=== PATIENT | female | born 1975 | race Caucasian/White ===

== ENCOUNTER 2020-12-04 12:28 | Emergency (ER) | payer OTHER, SELFPAY ==
--- NOTE | ~2020-12-04 | CT_ITS ---
EXAMINATION: CT HEAD WITHOUT CONTRAST CLINICAL INFORMATION: Possible seizures, weakness. COMPARISON: None TECHNIQUE: Contiguous axial imaging was performed from the skull base to vertex without intravenous administration of contrast. This CT examination was performed using dose optimization techniques as appropriate, variously including the following: *Automated exposure control *Adjustment of mA and/or kV according to patient size (this includes techniques or standardized protocols for targeted exams where dose is matched to indication/reason for exam; i.e. extremities or head) *Use of iterative reconstruction technique DLP: 677 mGy-cm FINDINGS: There is no evidence of acute intracranial hemorrhage or territorial infarction. No abnormal mass effect or midline shift is seen. Aj to white matter differentiation is well preserved. No extra-axial fluid collections are identified. The ventricles are normal in size. There is no abnormal attenuation within the brain parenchyma. There are hyperostotic changes along frontoparietal inner cortical table. The osseous structures and soft tissues are normal. The mastoid air cells and visualized portions of the paranasal sinuses are well aerated. CT/CT head/brain wo con IMPRESSION: No acute intracranial process seen.
[2020-12-04 12:31] VITALS: BP 142/77; PULSE 102; RESP 18; TEMP 36.7; O2SAT 98; BMI 31.9
--- NOTE | 2020-12-04 12:40 | ED_ITS ---
HPI - General Adult General Chief complaint: Seizure Stated complaint: history of seizure Time Seen by Provider: 12/04/20 12:38 Source: patient Mode of arrival: ambulatory Limitations: no limitations History of Present Illness HPI narrative: chronic presentation when she has her seizures but has done well for years on keppra 1000mg BID - compliant. Unsure if because she took 2 benadryl to sleep then advil PM that is made her feel this way. complaint: hallucinations, shaking, anxiety Onset (ago): hour(s) (some time in middle of the night) Location: head Severity: moderate Relieving factors: none Exacerbating factors: other (took 80mg of benadryl last night trying to sleep felt like she was seeing people, R side shaking, compliant with keppra) Associated symptoms: confusion Treatments prior to arrival: none Related Data Allergies Allergy/AdvReac Type Severity Reaction Status Date / Time shellfish derived Allergy Severe THROAT Verified 12/04/20 12:31 [SHELLFISH DERIVED] SWELLING tramadol [From ULTRAM] Allergy Severe SEIZURES Verified 12/04/20 12:31 ibuprofen [From MOTRIN IB] Allergy Intermediate GI UPSET Verified 12/04/20 12:31 morphine [MORPHINE] Allergy Intermediate CONFUSION Verified 12/04/20 12:31 naproxen [NAPROXEN] Allergy Intermediate GI UPSET Verified 12/04/20 12:31 oxcarbazepine Allergy Intermediate RASH Verified 12/04/20 12:31 [From TRILEPTAL] zolpidem [From AMBIEN] Allergy Intermediate SEIZURES Verified 12/04/20 12:31 carbamazepine [Tegretol] Allergy Unknown oral rash Verified 12/04/20 12:31 Flexeril Allergy Unknown seizure Uncoded 03/07/15 00:00 Shellfish Allergy Unknown throat Uncoded 03/07/15 00:00 swelling Review of Systems Review of Systems: Constitutional : No Weight loss, No Fever, No Chills, No Fatigue, No Malaise ENT/Mouth : No sore throat, No Rhinorrhea Eyes: No Eye Pain, No Swelling, No Redness Cardiovascular : No Chest Pain, No SOB, No Dyspnea on Exertion, No Orthopnea, No Edema, No Palpitations Respiratory : No Cough, No Sputum, No Wheezing Gastrointestinal : No Nausea, No Vomiting, No Diarrhea, No Constipation, No abdominal Pain, No Hematochezia, No Melena Genitourinary : No Dysuria, No Urinary Frequency, No Hematuria, Musculoskeletal : No joint pain, No Myalgias, No Joint Swelling Skin : No Skin Lesions, No rash Neuro : No Weakness, No Numbness, No Dizziness, No Headache, pos hallucinations, pos tremors Psych : pos Anxiety/Panic, No Depression Heme/Lymph: No Bruising, No Bleeding,No Lymphadenopathy Endocrine : No Polyuria, No Polydipsia All other systems reviewed and are negative [facility] Past Medical History Medical History (Updated 12/04/20 @ 15:13 by Twyla Dwyer DO) Chronic back pain Seizure Social History Social History (Updated 12/04/20 @ 12:58 by Twyla Dwyer DO) Patient Tobacco Use Status: Former Tobacco user Advance Directives: No Advance Directives Information Provided: No Patient : No Physical Exam Vital Signs: Vital Signs: Last Vital Signs Temp 98.0 F 12/04/20 12:31 Pulse 94 12/04/20 12:56 Resp 16 12/04/20 12:56 BP 117/79 12/04/20 12:56 Pulse Ox 97 12/04/20 12:56 Body Mass Index 31.9 Appearance: Alert. Oriented X3. No acute distress. Anxious Eyes: Pupils equal, round and reactive to light. 3mm ENT: Pharynx normal. Neck: Normal inspection. Neck supple. CVS: Normal heart rate and rhythm. Pulses normal. Respiratory: No respiratory distress. Breath sounds normal. Abdomen: Soft and nontender. Skin: Skin warm and dry. Normal skin color. Normal skin turgor. Extremities: No lower extremity edema. No calf ttp Neuro: Oriented X 3. No motor deficit. No sensory deficit. no clonus, CN 2-12 intact, steady gait Course Course Course Narrative: daughter states these episodes are not new and this is a terminologist thing, we have offered crisis - they decline the daughter states this is not new her presentation of these episodes and she has had the same issues in the past but no found cause and today's is not the worst one. offered crisis but they have declined several times at this time no seizure activity Medical Decision Making MDM Narrative Medical decision making narrative: 45 yo female with chronic back pain on suboxone, partial seizures on 1000mg keppra BID - here with hallucinations, weird taste in mouth, confusion worried she is going to have a seizure - only new change is she took her usual 50mg benadryl to sleep but then also took advil PM - she is worried it is too much benadryl. She has normal pupils, normal VS, no clonus doubt serotonin syndrome, will obtain labs, CT head, PO ativan for anxiety. Lab Data Result diagrams: 12/04/20 13:14 12/04/20 13:14 Labs: Lab Results 12/04/20 12/04/20 12/04/20 Range/Units 13:14 13:14 13:14 WBC 4.5 L (4.8-10.8) X10*3/uL RBC 4.35 (4.20-5.50) X10*6/uL Hgb 12.6 (12.0-16.0) g/dl Hct 37.5 (37-47) % MCV 86.2 (80-98) fL MCH 29.0 (27.0-33.0) pg MCHC 33.6 (31.0-35.0) g/dl RDW 12.4 (11.0-16.0) % Plt Count 276 (160-400) X10*3/uL MPV 8.4 L (9.4-12.3) fL Immature Gran % (Auto) 0.2 (0.0-0.4) % Neut % (Auto) 75.3 H (45-73) % Lymph % (Auto) 21.5 (20-40) % Crenshaw % (Auto) 2.4 (2-11) % Eos % (Auto) 0.2 (0-4) % Baso % (Auto) 0.4 (0-2) % Lymph # (Auto) 1.0 L (1.2-4.9) X10*3/uL Crenshaw # (Auto) 0.1 (0.1-1.2) X10*3/uL Eos # (Auto) 0.0 (0.0-0.4) X10*3/uL Baso # (Auto) 0.0 (0.0-0.2) X10*3/uL Abs Immat Gran (auto) 0.01 (0.00-0.03) X10*3/uL Absolute Neuts (auto) 3.4 (2.0-8.3) X10*3/uL Absolute Nucleated RBC 0.000 (0.0-0.012) X10*3/uL Nucleated RBC % (auto) 0.0 (0.0-0.2) /100WBC Sodium 137 (135-145) mmol/L Potassium 4.1 (3.3-5.1) mmol/L Chloride 103 (96-108) mmol/L Carbon Dioxide 26 (22-29) mmol/L Anion Gap 12 (12-20) BUN 9 (9-16) mg/dL Creatinine 0.80 (0.5-1.4) mg/dL Estim Creat Clear Calc 98.1 Estimated GFR > 60 Random Glucose 104 (60-115) mg/dL Calcium 9.5 (8.4-10.2) mg/dL Magnesium 1.9 (1.6-2.6) mg/dL Urine Color Urine Appearance Urine pH (5.0-8.0) Ur Specific Baird (1.005-1.025) Urine Protein (NEG-TRACE) MG/DL Urine Glucose (UA) (NEG) MG/DL Urine Ketones (NEG) MG/DL Urine Blood (NEG) Urine Nitrite (NEG) Ur Leukocyte Esterase (NEG) Urine RBC (0) /HPF Urine WBC (0-4) /HPF Ur Squamous Epith Cells /LPF Urine Bacteria /LPF COVID-19 (JEISON) Negative (Negative) COVID-19 Clin Com See Note 12/04/20 Range/Units 13:25 WBC (4.8-10.8) X10*3/uL RBC (4.20-5.50) X10*6/uL Hgb (12.0-16.0) g/dl Hct (37-47) % MCV (80-98) fL MCH (27.0-33.0) pg MCHC (31.0-35.0) g/dl RDW (11.0-16.0) % Plt Count (160-400) X10*3/uL MPV (9.4-12.3) fL Immature Gran % (Auto) (0.0-0.4) % Neut % (Auto) (45-73) % Lymph % (Auto) (20-40) % Crenshaw % (Auto) (2-11) % Eos % (Auto) (0-4) % Baso % (Auto) (0-2) % Lymph # (Auto) (1.2-4.9) X10*3/uL C[place]shaw # (Auto) (0.1-1.2) X10*3/uL Eos # (Auto) (0.0-0.4) X10*3/uL Baso # (Auto) (0.0-0.2) X10*3/uL Abs Immat Gran (auto) (0.00-0.03) X10*3/uL Absolute Neuts (auto) (2.0-8.3) X10*3/uL Absolute Nucleated RBC (0.0-0.012) X10*3/uL Nucleated RBC % (auto) (0.0-0.2) /100WBC Sodium (135-145) mmol/L Potassium (3.3-5.1) mmol/L Chloride (96-108) mmol/L Carbon Dioxide (22-29) mmol/L Anion Gap (12-20) BUN (9-16) mg/dL Creatinine (0.5-1.4) mg/dL Estim Creat Clear Calc Estimated GFR Random Glucose (60-115) mg/dL Calcium (8.4-10.2) mg/dL Magnesium (1.6-2.6) mg/dL Urine Color YELLOW Urine Appearance CLEAR Urine pH 6.5 (5.0-8.0) Ur Specific Baird 1.010 (1.005-1.025) Urine Protein NEG (NEG-TRACE) MG/DL Urine Glucose (UA) NEG (NEG) MG/DL Urine Ketones NEG (NEG) MG/DL Urine Blood 2+ H (NEG) Urine Nitrite NEG (NEG) Ur Leukocyte Esterase NEG (NEG) Urine RBC 5-9 H (0) /HPF Urine WBC 0-2 (0-4) /HPF Ur Squamous Epith Cells 1+ /LPF Urine Bacteria NONE /LPF COVID-19 (JEISON) (Negative) COVID-19 Clin Com ECG Data Attestation: I personally reviewed and interpreted this ECG as follows: Interpretation: Rate: 94 Rhythm: NSR [place]: normal Normal P waves. Normal KI. Normal QRS complex. ST T wave : normal no RADHA qTC: normal prior studies: no acute ischemia The study has been interpreted contemporaneously by me. . Discharge Plan Discharge Clinical Impression: Adverse effect of diphenhydramine Patient Disposition: Home, Self-Care Instructions: Adverse Drug Reaction (ED) Additional Instructions: return to ED for any worsening symptoms or concerns please call your neurologist as soon as possible you should not be taking more than 25mg benadryl at a time Stand Alone Forms: Work/School Release
--- NOTE | 2020-12-04 12:52 | ECG_ITS ---
Test Reason : WEAKNESS Blood Pressure : / mmHG Vent. Rate : 094 BPM Atrial Rate : 094 BPM P-R Int : 164 ms QRS Dur : 100 ms QT Int : 366 ms P-R-T Axes : 050 017 059 degrees QTc Int : 457 ms Normal sinus rhythm Normal ECG When compared with ECG of 20-APR-2015 14:54, T wave inversion no longer evident in Inferior leads Nonspecific T wave abnormality, improved in Lateral leads Referred By: Twyla Dwyer Electronically Signed By:ELAINE MERRILL
[2020-12-04] MEDS: LORazepam 1 MG TABLET PO (12:53)
[2020-12-04 12:56] VITALS: BP 117/79; PULSE 94; RESP 16; O2SAT 97
--- NOTE | 2020-12-04 13:05 | PC.NURSE ---
pt alert and oriented x 3, vss. pt reports she feels like she is gonna have a seizure, last night she had a bad dream which woke her up and since then she has been having those feelings. pt reports her last big seizure was about two months ago. she is on keppra and has been taking her meds consistently.
[2020-12-04 13:30] LABS: MANUAL DIFF FLAG NO
[2020-12-04 13:32] LABS: Basophils Percent Auto 0.4 % (0-2); Eosinophils Percent Auto 0.2 % (0-4); Hematocrit 37.5 % (37-47); Hemoglobin 12.6 g/dl (12.0-16.0); Imm Gran Abs Auto 0.01 X10*3/uL (0.00-0.03); Imm Gran Pct Auto 0.2 % (0.0-0.4); Lymphocytes Percent Auto 21.5 % (20-40); Mean Corpuscular HGB Conc 33.6 g/dl (31.0-35.0); Mean Corpuscular Volume 86.2 fL (80-98); Mean Platelet Volume 8.4 fL (9.4-12.3); Monocytes Absolute Auto 0.1 X10*3/uL (0.1-1.2); Monocytes Percent Auto 2.4 % (2-11); Neutrophils Absolute Auto 3.4 X10*3/uL (2.0-8.3); Neutrophils Percent Auto 75.3 % (45-73); Platelet Count 276 X10*3/uL (160-400); Red Blood Count 4.35 X10*6/uL (4.20-5.50); Red Cell Distribution Width 12.4 % (11.0-16.0); White Blood Count 4.5 X10*3/uL (4.8-10.8)
[2020-12-04 13:40] LABS: Appearance Urine CLEAR; Color Urine YELLOW; Glucose Urine UA NEG (NEG); Leukocyte Esterase Urine NEG (NEG); Nitrite Urine NEG (NEG); PH 6.5 (5.0-8.0); UACC Culture Trigger NO; Urine Blood 2+ (NEG); Urine Ketones NEG (NEG); Urine Protein NEG (NEG-TRACE)
[2020-12-04 13:48] LABS: Anion Gap 12 (12-20); Blood Urea Nitrogen 9 mg/dL (9-16); Calcium 9.5 mg/dL (8.4-10.2); Carbon Dioxide 26 mmol/L (22-29); Chloride 103 mmol/L (96-108); Creatinine Clr Calc Pharmacy 98.1; Estimated Glomerular Filt Rate > 60; Glucose Random 104 mg/dL (60-115); Magnesium 1.9 mg/dL (1.6-2.6); Potassium 4.1 mmol/L (3.3-5.1); Sodium 137 mmol/L (135-145)
[2020-12-04 13:52] LABS: COVID-19 Test Negative (Negative)
[2020-12-04 13:59] LABS: Squamous Epithelial Cell Urine 1+ /LPF; WBC Urine 0-2 /HPF (0-4)
[2020-12-04 16:38] VITALS: BP 133/78; PULSE 94; RESP 18; TEMP 37.5; O2SAT 97
--- NOTE | 2020-12-04 19:25 | MHC.CARE ---
CARE Team was consulted to meet with patient by ED provider. Pt reported that she was scared to go to home because she has been having nightmares and was afraid to close her eyes. Pt reported a hx of significant trauma that could contribute to the severity of these nightmares. Pt's explained that several days ago when they were at a fair the pt reacted to a smell that she said brought up memories from her past and that he felt that this was coming. He reported that the pt has been fighting sleep and getting increasingly anxious about family stressors. Pt appeared tearful and exhausted. CARE Team engaged extensively with the pt and pt's about familial stressors. Pt denied SI/HI/ and did not appear to be responding to internal stimuli. Pt said she felt safe going home with her and that she would contact her therapist in the morning to see if she could get a sooner appointment. Both pt and pt's were given the number for CARE Team and Crisis and both felt comfortable with being discharged home.
== END 2020-12-04 19:02 | disposition home or self-care (01) ==
PROVIDERS: Emergency Provider Emergency Medicine
DX: R56.9 Unspecified convulsions (principal); T42.6X5A Adverse effect of other antiepileptic and sedative-hypnotic drugs, initial encounter; Y92.9 Unspecified place or not applicable; Z20.822 Contact with and (suspected) exposure to COVID-19; Z79.899 Other long term (current) drug therapy
CPT/HCPCS: 36415; 70450; 80048; 81001; 83735; 85025; 87635; 93005; 99284

== ENCOUNTER 2022-03-19 11:37 | Emergency (ER) | payer OTHER, SELFPAY ==
--- NOTE | ~2022-03-19 | XR_ITS ---
EXAMINATION: XR CHEST CLINICAL INFORMATION: Chest pain and shortness of breath COMPARISON: Prior chest and ribs April 2017 TECHNIQUE: 2 views of the chest were obtained. FINDINGS: No significant abnormality is noted involving the heart, lungs, mediastinum, bony thorax or soft tissues. XR/XR chest 2V IMPRESSION: Unremarkable examination.
[2022-03-19 11:39] VITALS: BP 129/90; PULSE 84; RESP 16; TEMP 36.2; O2SAT 98; BMI 30.9
--- NOTE | 2022-03-19 11:39 | ED_ITS ---
HPI - General Adult General Chief complaint: General Medical <Brittney Tolbert CNP - Last Filed: 03/19/22 11:47> Stated complaint: Seizures <Brittney Tolbert CNP - Last Filed: 03/19/22 11:47> Time Seen by Provider: 03/19/22 14:35 <Brittney Tolbert CNP - Last Filed: 03/19/22 11:47> Source: patient <Elida Foster MD - Last Filed: 03/19/22 15:28> Mode of arrival: ambulatory <Elida Foster MD - Last Filed: 03/19/22 15:28> History of Present Illness HPI narrative: 47-year-old female who presents with a partial seizure, she currently is being treated with a combination of gabapentin b.i.d. as well as Keppra 1700 mg b.i.d. and states she has been taking her medications as prescribed and has not missed any doses nor has she had any change in the medication. She denies any fever, chills, GI or symptoms but states that she has had increased stress levels. Patient complaints of brown discharge in states that she had this last year when she had a partial seizure and that she was treated for bacterial vaginosis. <Elida Foster MD - Last Filed: 03/19/22 15:28> Related Data Home medications: Previous Rx's Medication Instructions Recorded hydroxyzine HCl 25 mg tablet 25 mg PO BEDTIME #20 tabs 12/04/20 metronidazole 500 mg tablet 500 mg PO BID 7 days #14 tabs 03/19/22 <Brittney Tolbert CNP - Last Filed: 03/19/22 11:47> Allergies/adverse reactions: Allergies Allergy/AdvReac Type Severity Reaction Status Date / Time shellfish derived Allergy Severe THROAT Verified 12/04/20 12:31 [SHELLFISH DERIVED] SWELLING tramadol [From ULTRAM] Allergy Severe SEIZURES Verified 12/04/20 12:31 ibuprofen [From MOTRIN IB] Allergy Intermediate GI UPSET Verified 12/04/20 12:31 morphine [MORPHINE] Allergy Intermediate CONFUSION Verified 12/04/20 12:31 naproxen [NAPROXEN] Allergy Intermediate GI UPSET Verified 12/04/20 12:31 oxcarbazepine Allergy Intermediate RASH Verified 12/04/20 12:31 [From TRILEPTAL] zolpidem [From AMBIEN] Allergy Intermediate SEIZURES Verified 12/04/20 12:31 carbamazepine [Tegretol] Allergy Unknown oral rash Verified 12/04/20 12:31 Flexeril Allergy Unknown seizure Uncoded 03/07/15 00:00 Shellfish Allergy Unknown throat Uncoded 03/07/15 00:00 swelling <Brittney Tolbert CNP - Last Filed: 03/19/22 11:47> Review of Systems 2 Review of Systems: Pertinent positives and negatives as stated in HPI <Elida Foster MD - Last Filed: 03/19/22 15:28> PMFSH Past Medical History Source: nursing notes reviewed <Elida Foster MD - Last Filed: 03/19/22 15:28> Medical History: Medical History Chronic back pain Seizure <Brittney Tolbert CNP - Last Filed: 03/19/22 11:47> Social History Social History: Social History Alcohol intake: never Patient Tobacco Use Status: Former Tobacco user Smoked in Last 30 Days: No Use of substances other than those prescribed or required for medical reasons: No Advance Directives: Yes Advance Directives Information Provided: Yes Advance Directives on File: No <Brittney Tolbert CNP - Last Filed: 03/19/22 11:47> Physical Exam ED Vital Signs: Vital Signs - 24 hr 03/19/22 14:13 03/19/22 11:39 Temperature 98.0 F 97.1 F Pulse Rate 84 84 Respiratory Rate 18 16 Blood Pressure 118/63 129/90 H Pulse Oximetry 100 98 Oxygen Delivery Method Room Air Room Air BMI result Body Mass Index 30.9 <Brittney Tolbert CNP - Last Filed: 03/19/22 11:47> Vital Signs - 24 hr 03/19/22 14:13 03/19/22 11:39 Temperature 98.0 F 97.1 F Pulse Rate 84 84 Respiratory Rate 18 16 Blood Pressure 118/63 129/90 H Pulse Oximetry 100 98 Oxygen Delivery Method Room Air Room Air BMI result Body Mass Index 30.9 VITAL SIGNS: Reviewed. GENERAL: Well developed, well nourished, in no acute distress. HEAD: Normocephalic/atraumatic EYES: PERRLA, EOMI EARS: Ext canals without abnormality OROPHARYNX: no oral lesions noted, posterior pharynx clear LUNGS: Normal breath sounds. No adventitious sounds or accessory muscle use. SpO2<98> CARDIOVASCULAR: Regular rate and rhythm without noted murmurs ABDOMEN: Soft, non-tender, non-distended with bowel sounds. MUSCULOSKELETAL: No tenderness, deformities, or effusions noted on gross inspection. EXTREMITIES: No cyanosis, clubbing or edema. SKIN: Inspection of the skin reveals no rashes NEUROLOGIC: Alert and oriented x 4. Strength and sensation to light touch were grossly intact x 4, cranial nerves 2-12 are grossly intact.. <Elida Foster MD - Last Filed: 03/19/22 15:28> Course Course Course Narrative: This is an RME: Adiitional HPI, ROS, PE not included below will be deferred to primary provider. Patient reports she has been experiencing partial seizures over the past 3 days; approximately 10 seizures over the past 3 days. States typically this indicates and infection for her. Reports compliance with Keppra and gabapentin. Patient has multiple complaints; diffuse anterior chest pain with intermittent shortness of breath, diffuse lower back pain, and ABD pain. Also reporting abnormal vaginal discharge; brown. Denies URI symptoms. Denies dysuria, urinary fr equency. Plan: Labs, EKG, urinalysis, chest x-ray, viral testing. <Brittney Tolbert CNP - Last Filed: 03/19/22 11:47> Medical Decision Making Medical Decision Making MDM Narrative: This is a 47-year-old female with history that appears to be consistent with increased stress levels and may be recurrence of underlying vaginal infection that she attributes to her previous partial seizure. 1520: I reviewed patient's laboratory workup, imaging studies, and EKG. There is no evidence to suggest acute infection, no STI or urinary tract infection, pa tient is not , viral testing is all negative and no acute findings on EKG. Patient is looking up the treatment that she had previously for her bacterial vaginosis and she will be treated with this medication but is otherwise discharged home in stable condition. She is encouraged to follow-up with her neurologist. <Elida Foster MD - Last Filed: 03/19/22 15:28> Differential Diagnosis Differential Diagnoses: The differential diagnosis associated with the presentation includes <Elida Foster MD - Last Filed: 03/19/22 15:28> I will rule out infection, anemia, electrolyte abnormalities <Elida sanchez MD - Last Filed: 03/19/22 15:28> Lab Data MDM Lab Attestation statement: I reviewed the patient's lab results. <Elida Foster MD - Last Filed: 03/19/22 15:28> Please see the discussion above <Elida Foster MD - Last Filed: 03/19/22 15:28> Result Diagrams: : 03/19/22 12:12 03/19/22 12:12 <Brittney Tolbert CNP - Last Filed: 03/19/22 11:47> Labs: Lab Results 03/19/22 03/19/22 03/19/22 Range/Units 12:12 12:12 12:12 WBC 4.8 (4.8-10.8) X10*3/uL RBC 4.21 (4.20-5.50) X10*6/uL Hgb 11.6 L (12.0-16.0) g/dl Hct 35.6 L (37.0-47.0) % MCV 84.6 (80.0-98.0) fL MCH 27.6 (27.0-33.0) pg MCHC 32.6 (31.0-35.0) g/dl RDW 13.1 (11.0-16.0) % Plt Count 303 (160-400) X10*3/uL MPV 8.3 L (9.4-12.3) fL Immature Gran % (Auto) 0.2 (0.0-0.4) % Neut % (Auto) 67.3 (45-73) % Lymph % (Auto) 24.2 (20-40) % Hayes % (Auto) 6.9 (2-11) % Eos % (Auto) 0.8 (0-4) % Baso % (Auto) 0.6 (0-2) % Lymph # (Auto) 1.2 (1.2-4.9) X10*3/uL Hayes # (Auto) 0.3 (0.1-1.2) X10*3/uL Eos # (Auto) 0.0 (0.0-0.4) X10*3/uL Baso # (Auto) 0.0 (0.0-0.2) X10*3/uL Abs Immat Gran (auto) 0.01 (0.00-0.03) X10*3/uL Absolute Neuts (auto) 3.2 (2.0-8.3) x10*3/uL Absolute Nucleated RBC 0.000 (0.0-0.012) X10*3/uL Nucleated RBC % (auto) 0.0 (0.0-0.2) /100WBC Sodium 138 (135-145) mmol/L Potassium 4.1 (3.3-5.1) mmol/L Chloride 102 (96-108) mmol/L Carbon Dioxide 28 (22-29) mmol/L Anion Gap 12 (12-20) BUN 11 (9-16) mg/dL Creatinine 0.87 (0.5-1.4) mg/dL Estim Creat Clear Calc 86.9 Estimated GFR > 60 Random Glucose 103 (60-115) mg/dL Calcium 9.6 (8.4-10.2) mg/dL Magnesium 2.1 (1.6-2.6) mg/dL Total Bilirubin 0.4 (0.0-1.0) mg/dL AST 19 (5-31) U/L ALT 11 (0-31) U/L Alkaline Phosphatase 98 (39-117) U/L Troponin I High Sens < 3.5 (<3.5-17.0) ng/L Total Protein 7.9 (6.5-8.0) g/dL Albumin 4.1 (3.5-5.0) g/dL Lipase 9 (8-78) U/L Urine Color Urine Appearance Urine pH (5.0-9.0) Ur Specific [place] (1.005-1.025) Urine Protein (Neg-Trace) mg/dL Urine Glucose (UA) (Negative) mg/dL Urine Ketones (Negative) mg/dL Urine Blood (Negative) Urine Nitrite (Negative) Ur Leukocyte Esterase (Negative) Urine RBC (0-2) /HPF Urine WBC (0-5) /HPF Ur Squamous Epith Cells (0-2) /HPF Urine Bacteria (None Seen) Hyaline Casts (0-2) /LPF Urine Test (NEGATIVE) Chlam trachomat DNA PCR (Not Detect.) COVID-19 (JEISON) (Negative) COVID-19 Clin Com Influenza Type A (STEFANIA) (Negative) Influenza Type B (STEFANIA) (Negative) Influenza A & B Note N.gonorrhoeae DNA (PCR) (Not Detect.) 03/19/22 03/19/22 03/19/22 Range/Units 12:12 12:12 12:12 WBC (4.8-10.8) X10*3/uL RBC (4.20-5.50) X10*6/uL Hgb (12.0-16.0) g/dl Hct (37.0-47.0) % MCV (80.0-98.0) fL MCH (27.0-33.0) pg MCHC (31.0-35.0) g/dl RDW (11.0-16.0) % Plt Count (160-400) X10*3/uL MPV (9.4-12.3) fL Immature Gran % (Auto) (0.0-0.4) % Neut % (Auto) (45-73) % Lymph % (Auto) (20-40) % Hayes % (Auto) (2-11) % Eos % (Auto) (0-4) % Baso % (Auto) (0-2) % Lymph # (Auto) (1.2-4.9) X10*3/uL Hayes # (Auto) (0.1-1.2) X10*3/uL Eos # (Auto) (0.0-0.4) X10*3/uL Baso # (Auto) (0.0-0.2) X10*3/uL Abs Immat Gran (auto) (0.00-0.03) X10*3/uL Absolute Neuts (auto) (2.0-8.3) x10*3/uL Absolute Nucleated RBC (0.0-0.012) X10*3/uL Nucleated RBC % (auto) (0.0-0.2) /100WBC Sodium (135-145) mmol/L Potassium (3.3-5.1) mmol/L Chloride (96-108) mmol/L Carbon Dioxide (22-29) mmol/L Anion Gap (12-20) BUN (9-16) mg/dL Creatinine (0.5-1.4) mg/dL Estim Creat Clear Calc Estimated GFR Random Glucose (60-115) mg/dL Calcium (8.4-10.2) mg/dL Magnesium (1.6-2.6) mg/dL Total Bilirubin (0.0-1.0) mg/dL AST (5-31) U/L ALT (0-31) U/L Alkaline Phosphatase (39-117) U/L Troponin I High Sens (<3.5-17.0) ng/L Total Protein (6.5-8.0) g/dL Albumin (3.5-5.0) g/dL Lipase (8-78) U/L Urine Color Urine Appearance Urine pH (5.0-9.0) Ur Specific [place] (1.005-1.025) Urine Protein (Neg-Trace) mg/dL Urine Glucose (UA) (Negative) mg/dL Urine Ketones (Negative) mg/dL Urine Blood (Negative) Urine Nitrite (Negative) Ur Leukocyte Esterase (Negative) Urine RBC (0-2) /HPF Urine WBC (0-5) /HPF Ur Squamous Epith Cells (0-2) /HPF Urine Bacteria (None Seen) Hyaline Casts (0-2) /LPF Urine Test (NEGATIVE) Chlam trachomat DNA PCR NOT DETECTED (Not Detect.) COVID-19 (JEISON) Negative (Negative) COVID-19 Clin Com See Note Influenza Type A (STEFANIA) Negative (Negative) Influenza Type B (STEFANIA) Negative (Negative) Influenza A & B Note See Note N.gonorrhoeae DNA (PCR) NOT DETECTED (Not Detect.) 03/19/22 03/19/22 Range/Units 12:12 12:12 WBC (4.8-10.8) X10*3/uL RBC (4.20-5.50) X10*6/uL Hgb (12.0-16.0) g/dl Hct (37.0-47.0) % MCV (80.0-98.0) fL MCH (27.0-33.0) pg MCHC (31.0-35.0) g/dl RDW (11.0-16.0) % Plt Count (160-400) X10*3/uL MPV (9.4-12.3) fL Immature Gran % (Auto) (0.0-0.4) % Neut % (Auto) (45-73) % Lymph % (Auto) (20-40) % Hayes % (Auto) (2-11) % Eos % (Auto) (0-4) % Baso % (Auto) (0-2) % Lymph # (Auto) (1.2-4.9) X10*3/uL Hayes # (Auto) (0.1-1.2) X10*3/uL Eos # (Auto) (0.0-0.4) X10*3/uL Baso # (Auto) (0.0-0.2) X10*3/uL Abs Immat Gran (auto) (0.00-0.03) X10*3/uL Absolute Neuts (auto) (2.0-8.3) x10*3/uL Absolute Nucleated RBC (0.0-0.012) X10*3/uL Nucleated RBC % (auto) (0.0-0.2) /100WBC Sodium (135-145) mmol/L Potassium (3.3-5.1) mmol/L Chloride (96-108) mmol/L Carbon Dioxide (22-29) mmol/L Anion Gap (12-20) BUN (9-16) mg/dL Creatinine (0.5-1.4) mg/dL Estim Creat Clear Calc Estimated GFR Random Glucose (60-115) mg/dL Calcium (8.4-10.2) mg/dL Magnesium (1.6-2.6) mg/dL Total Bilirubin (0.0-1.0) mg/dL AST (5-31) U/L ALT (0-31) U/L Alkaline Phosphatase (39-117) U/L Troponin I High Sens (<3.5-17.0) ng/L Total Protein (6.5-8.0) g/dL Albumin (3.5-5.0) g/dL Lipase (8-78) U/L Urine Color Yellow Urine Appearance Clear Urine pH 6.0 (5.0-9.0) Ur Specific [place] 1.025 (1.005-1.025) Urine Protein Trace (Neg-Trace) mg/dL Urine Glucose (UA) Negative (Negative) mg/dL Urine Ketones Trace (Negative) mg/dL Urine Blood Moderate (2+) H (Negative) Urine Nitrite Negative (Negative) Ur Leukocyte Esterase Trace H (Negative) Urine RBC 11-20 H (0-2) /HPF Urine WBC 0-5 (0-5) /HPF Ur Squamous Epith Cells 3-5 (0-2) /HPF Urine Bacteria None Seen (None Seen) Hyaline Casts 0-2 (0-2) /LPF Urine Test NEGATIVE (NEGATIVE) Chlam trachomat DNA PCR (Not Detect.) COVID-19 (JEISON) (Negative) COVID-19 Clin Com Influenza Type A (STEFANIA) (Negative) Influenza Type B (STEFANIA) (Negative) Influenza A & B Note N.gonorrhoeae DNA (PCR) (Not Detect.) <Brittney Tolbert, [employer] - Last Filed: 03/19/22 11:47> Lab Results 03/19/22 03/19/22 03/19/22 Range/Units 12:12 12:12 12:12 WBC 4.8 (4.8-10.8) X10*3/uL RBC 4.21 (4.20-5.50) X10*6/uL Hgb 11.6 L (12.0-16.0) g/dl Hct 35.6 L (37.0-47.0) % MCV 84.6 (80.0-98.0) fL MCH 27.6 (27.0-33.0) pg MCHC 32.6 (31.0-35.0) g/dl RDW 13.1 (11.0-16.0) % Plt Count 303 (160-400) X10*3/uL MPV 8.3 L (9.4-12.3) fL Immature Gran % (Auto) 0.2 (0.0-0.4) % Neut % (Auto) 67.3 (45-73) % Lymph % (Auto) 24.2 (20-40) % Hayes % (Auto) 6.9 (2-11) % Eos % (Auto) 0.8 (0-4) % Baso % (Auto) 0.6 (0-2) % Lymph # (Auto) 1.2 (1.2-4.9) X10*3/uL Hayes # (Auto) 0.3 (0.1-1.2) X10*3/uL Eos # (Auto) 0.0 (0.0-0.4) X10*3/uL Baso # (Auto) 0.0 (0.0-0.2) X10*3/uL Abs Immat Gran (auto) 0.01 (0.00-0.03) X10*3/uL Absolute Neuts (auto) 3.2 (2.0-8.3) x10*3/uL Absolute Nucleated RBC 0.000 (0.0-0.012) X10*3/uL Nucleated RBC % (auto) 0.0 (0.0-0.2) /100WBC Sodium 138 (135-145) mmol/L Potassium 4.1 (3.3-5.1) mmol/L Chloride 102 (96-108) mmol/L Carbon Dioxide 28 (22-29) mmol/L Anion Gap 12 (12-20) BUN 11 (9-16) mg/dL Creatinine 0.87 (0.5-1.4) mg/dL Estim Creat Clear Calc 86.9 Estimated GFR > 60 Random Glucose 103 (60-115) mg/dL Calcium 9.6 (8.4-10.2) mg/dL Magnesium 2.1 (1.6-2.6) mg/dL Total Bilirubin 0.4 (0.0-1.0) mg/dL AST 19 (5-31) U/L ALT 11 (0-31) U/L Alkaline Phosphatase 98 (39-117) U/L Troponin I High Sens < 3.5 (<3.5-17.0) ng/L Total Protein 7.9 (6.5-8.0) g/dL Albumin 4.1 (3.5-5.0) g/dL Lipase 9 (8-78) U/L Urine Color Urine Appearance Urine pH (5.0-9.0) Ur Specific [place] (1.005-1.025) Urine Protein (Neg-Trace) mg/dL Urine Glucose (UA) (Negative) mg/dL Urine Ketones (Negative) mg/dL Urine Blood (Negative) Urine Nitrite (Negative) Ur Leukocyte Esterase (Negative) Urine RBC (0-2) /HPF Urine WBC (0-5) /HPF Ur Squamous Epith Cells (0-2) /HPF Urine Bacteria (None Seen) Hyaline Casts (0-2) /LPF Urine Test (NEGATIVE) Chlam trachomat DNA PCR (Not Detect.) COVID-19 (JEISON) (Negative) COVID-19 Clin Com Influenza Type A (STEFANIA) (Negative) Influenza Type B (STEFANIA) (Negative) Influenza A & B Note N.gonorrhoeae DNA (PCR) (Not Detect.) 03/19/22 03/19/22 03/19/22 Range/Units 12:12 12:12 12:12 WBC (4.8-10.8) X10*3/uL RBC (4.20-5.50) X10*6/uL Hgb (12.0-16.0) g/dl Hct (37.0-47.0) % MCV (80.0-98.0) fL MCH (27.0-33.0) pg MCHC (31.0-35.0) g/dl RDW (11.0-16.0) % Plt Count (160-400) X10*3/uL MPV (9.4-12.3) fL Immature Gran % (Auto) (0.0-0.4) % Neut % (Auto) (45-73) % Lymph % (Auto) (20-40) % Hayes % (Auto) (2-11) % Eos % (Auto) (0-4) % Baso % (Auto) (0-2) % Lymph # (Auto) (1.2-4.9) X10*3/uL Hayes # (Auto) (0.1-1.2) X10*3/uL Eos # (Auto) (0.0-0.4) X10*3/uL Baso # (Auto) (0.0-0.2) X10*3/uL Abs Immat Gran (auto) (0.00-0.03) X10*3/uL Absolute Neuts (auto) (2.0-8.3) x10*3/uL Absolute Nucleated RBC (0.0-0.012) X10*3/uL Nucleated RBC % (auto) (0.0-0.2) /100WBC Sodium (135-145) mmol/L Potassium (3.3-5.1) mmol/L Chloride (96-108) mmol/L Carbon Dioxide (22-29) mmol/L Anion Gap (12-20) BUN (9-16) mg/dL Creatinine (0.5-1.4) mg/dL Estim Creat Clear Calc Estimated GFR Random Glucose (60-115) mg/dL Calcium (8.4-10.2) mg/dL Magnesium (1.6-2.6) mg/dL Total Bilirubin (0.0-1.0) mg/dL AST (5-31) U/L ALT (0-31) U/L Alkaline Phosphatase (39-117) U/L Troponin I High Sens (<3.5-17.0) ng/L Total Protein (6.5-8.0) g/dL Albumin (3.5-5.0) g/dL Lipase (8-78) U/L Urine Color Urine Appearance Urine pH (5.0-9.0) Ur Specific [place] (1.005-1.025) Urine Protein (Neg-Trace) mg/dL Urine Glucose (UA) (Negative) mg/dL Urine Ketones (Negative) mg/dL Urine Blood (Negative) Urine Nitrite (Negative) Ur Leukocyte Esterase (Negative) Urine RBC (0-2) /HPF Urine WBC (0-5) /HPF Ur Squamous Epith Cells (0-2) /HPF Urine Bacteria (None Seen) Hyaline Casts (0-2) /LPF Urine Test (NEGATIVE) Chlam trachomat DNA PCR NOT DETECTED (Not Detect.) COVID-19 (JEISON) Negative (Negative) COVID-19 Clin Com See Note Influenza Type A (STEFANIA) Negative (Negative) Influenza Type B (STEFANIA) Negative (Negative) Influenza A & B Note See Note N.gonorrhoeae DNA (PCR) NOT DETECTED (Not Detect.) 03/19/22 03/19/22 Range/Units 12:12 12:12 WBC (4.8-10.8) X10*3/uL RBC (4.20-5.50) X10*6/uL Hgb (12.0-16.0) g/dl Hct (37.0-47.0) % MCV (80.0-98.0) fL MCH (27.0-33.0) pg MCHC (31.0-35.0) g/dl RDW (11.0-16.0) % Plt Count (160-400) X10*3/uL MPV (9.4-12.3) fL Immature Gran % (Auto) (0.0-0.4) % Neut % (Auto) (45-73) % Lymph % (Auto) (20-40) % Hayes % (Auto) (2-11) % Eos % (Auto) (0-4) % Baso % (Auto) (0-2) % Lymph # (Auto) (1.2-4.9) X10*3/uL Hayes # (Auto) (0.1-1.2) X10*3/uL Eos # (Auto) (0.0-0.4) X10*3/uL Baso # (Auto) (0.0-0.2) X10*3/uL Abs Immat Gran (auto) (0.00-0.03) X10*3/uL Absolute Neuts (auto) (2.0-8.3) x10*3/uL Absolute Nucleated RBC (0.0-0.012) X10*3/uL Nucleated RBC % (auto) (0.0-0.2) /100WBC Sodium (135-145) mmol/L Potassium (3.3-5.1) mmol/L Chloride (96-108) mmol/L Carbon Dioxide (22-29) mmol/L Anion Gap (12-20) BUN (9-16) mg/dL Creatinine (0.5-1.4) mg/dL Estim Creat Clear Calc Estimated GFR Random Glucose (60-115) mg/dL Calcium (8.4-10.2) mg/dL Magnesium (1.6-2.6) mg/dL Total Bilirubin (0.0-1.0) mg/dL AST (5-31) U/L ALT (0-31) U/L Alkaline Phosphatase (39-117) U/L Troponin I High Sens (<3.5-17.0) ng/L Total Protein (6.5-8.0) g/dL Albumin (3.5-5.0) g/dL Lipase (8-78) U/L Urine Color Yellow Urine Appearance Clear Urine pH 6.0 (5.0-9.0) Ur Specific [place] 1.025 (1.005-1.025) Urine Protein Trace (Neg-Trace) mg/dL Urine Glucose (UA) Negative (Negative) mg/dL Urine Ketones Trace (Negative) mg/dL Urine Blood Moderate (2+) H (Negative) Urine Nitrite Negative (Negative) Ur Leukocyte Esterase Trace H (Negative) Urine RBC 11-20 H (0-2) /HPF Urine WBC 0-5 (0-5) /HPF Ur Squamous Epith Cells 3-5 (0-2) /HPF Urine Bacteria None Seen (None Seen) Hyaline Casts 0-2 (0-2) /LPF Urine Test NEGATIVE (NEGATIVE) Chlam trachomat DNA PCR (Not Detect.) COVID-19 (JEISON) (Negative) COVID-19 Clin Com Influenza Type A (STEFANIA) (Negative) Influenza Type B (STEFANIA) (Negative) Influenza A & B Note N.gonorrhoeae DNA (PCR) (Not Detect.) <Elida Foster MD - Last Filed: 03/19/22 15:28> Independent Interpretation I performed an independent interpretation of an: EKG <Elida Foster MD - Last Filed: 03/19/22 15:28> Interpretation: Normal sinus rhythm, HR-89, no STEMI, AL/QRS/QTC is within normal limits. <Elida Foster MD - Last Filed: 03/19/22 15:28> Radiology Impression Radiologist Impression: My interpretation is in agreement with radiology's impression of imaging studies. <Elida Foster MD - Last Filed: 03/19/22 15:28> Critical Care Time Critical Care Time Critical Care Time: Yes <Elida Foster MD - Last Filed: 03/19/22 15:28> Total Critical Care Time: 30 <Elida Foster MD - Last Filed: 03/19/22 15:28> Attestation: I personally attest to this time spent taking care of the patient. <Elida Foster MD - Last Filed: 03/19/22 15:28> Discharge Plan Discharge Clinical Impression: Partial seizure, Bacterial vaginosis <Brittney Tolbert CNP - Last Filed: 03/19/22 11:47> Patient Disposition: Home, Self-Care <Brittney Tolbert CNP - Last Filed: 03/19/22 11:47> Instructions: Bacterial Vaginosis (ED), Recurrent Seizures in Adults (ED) <Brittney Tolbert CNP - Last Filed: 03/19/22 11:47> Additional Instructions: 1. Resume all home medications as prescribed. 2. I have sent a prescription to your pharmacy for your vaginal discharge. 3. Please follow-up with your neurologist and primary care doctor on Tuesday morning for re-evaluation further outpatient management. Return to the ER for worsening symptoms. <Brittney Tolbert CNP - Last Filed: 03/19/22 11:47> Prescriptions: New metronidazole 500 mg tablet 500 mg PO BID 7 Days Qty: 14 0RF No Action hydroxyzine HCl 25 mg tablet 25 mg PO BEDTIME Qty: 20 0RF <Brittney Tolbert CNP - Last Filed: 03/19/22 11:47> Referrals: Marga Cabral PA [Primary Care Provider] - <Brittney Tolbert CNP - Last Filed: 03/19/22 11:47>
--- NOTE | 2022-03-19 11:44 | ECG_ITS ---
Test Reason : chest pain Blood Pressure : / mmHG Vent. Rate : 089 BPM Atrial Rate : 089 BPM P-R Int : 144 ms QRS Dur : 098 ms QT Int : 364 ms P-R-T Axes : 044 013 041 degrees QTc Int : 442 ms Normal sinus rhythm Cannot rule out Anterior infarct , age undetermined Abnormal ECG When compared to the previous EKG of Poor R wave progression is now Present , could be due to lead placement Referred By: Brittney Tolbert Electronically Signed By:WERO OLIVEIRA MD
[2022-03-19 12:28] LABS: MANUAL DIFF FLAG NO
[2022-03-19 12:30] LABS: Basophils Percent Auto 0.6 % (0-2); Eosinophils Percent Auto 0.8 % (0-4); Hematocrit 35.6 % (37.0-47.0); Hemoglobin 11.6 g/dl (12.0-16.0); Imm Gran Abs Auto 0.01 X10*3/uL (0.00-0.03); Imm Gran Pct Auto 0.2 % (0.0-0.4); Lymphocytes Absolute Auto 1.2 X10*3/uL (1.2-4.9); Lymphocytes Percent Auto 24.2 % (20-40); Mean Corpuscular HGB Conc 32.6 g/dl (31.0-35.0); Mean Corpuscular Hemoglobin 27.6 pg (27.0-33.0); Mean Corpuscular Volume 84.6 fL (80.0-98.0); Mean Platelet Volume 8.3 fL (9.4-12.3); Monocytes Absolute Auto 0.3 X10*3/uL (0.1-1.2); Monocytes Percent Auto 6.9 % (2-11); Neutrophils Absolute Auto 3.2 x10*3/uL (2.0-8.3); Neutrophils Percent Auto 67.3 % (45-73); Platelet Count 303 X10*3/uL (160-400); Red Blood Count 4.21 X10*6/uL (4.20-5.50); Red Cell Distribution Width 13.1 % (11.0-16.0); White Blood Count 4.8 X10*3/uL (4.8-10.8)
[2022-03-19 12:36] LABS: COVID-19 Test Negative (Negative); IDNOW Serial# 16C4AD1C
[2022-03-19 12:41] LABS: Appearance Urine Clear; Color Urine Yellow; Glucose Urine UA Negative (Negative); IDNOW Serial# BCCEAD1C; Influenza A Negative (Negative); Influenza B2 Negative (Negative); Leukocyte Esterase Urine Trace (Negative); Nitrite Urine Negative (Negative); Specific Gravity - Urine 1.025 (1.005-1.025); UMIC TRIGGER UACC YES; UPreg QC Valid YES; Urine Blood Moderate (2+) (Negative); Urine Ketones Trace mg/dL (Negative); Urine Pregnancy NEGATIVE (NEGATIVE); Urine Protein Trace mg/dL (Neg-Trace)
[2022-03-19 12:46] LABS: Bacteria Urine None Seen (None Seen); Hyaline Casts Urine 0-2 /LPF (0-2); WBC Urine 0-5 /HPF (0-5)
[2022-03-19 12:56] LABS: Alanine Aminotransferase 11 U/L (0-31); Albumin Level 4.1 g/dL (3.5-5.0); Alkaline Phosphatase 98 U/L (39-117); Anion Gap 12 (12-20); Aspartate Amino Transferase 19 U/L (5-31); Bilirubin Total 0.4 mg/dL (0.0-1.0); Blood Urea Nitrogen 11 mg/dL (9-16); Calcium 9.6 mg/dL (8.4-10.2); Carbon Dioxide 28 mmol/L (22-29); Chloride 102 mmol/L (96-108); Creatinine Clr Calc Pharmacy 86.9; Estimated Glomerular Filt Rate > 60; Glucose Random 103 mg/dL (60-115); Lipase 9 U/L (8-78); Magnesium 2.1 mg/dL (1.6-2.6); Potassium 4.1 mmol/L (3.3-5.1); Sodium 138 mmol/L (135-145); Total Protein 7.9 g/dL (6.5-8.0)
[2022-03-19 14:00] LABS: Troponin-I High Sensitivity < 3.5 ng/L (<3.5-17.0)
[2022-03-19 14:13] VITALS: BP 118/63; PULSE 84; RESP 18; TEMP 36.7; O2SAT 100
[2022-03-19 14:16] LABS: CT PCR NOT DETECTED (Not Detect.); NG PCR NOT DETECTED (Not Detect.)
== END 2022-03-19 15:38 | disposition home or self-care (01) ==
PROVIDERS: Nurse Practitioner Family; Emergency Provider Student in an Organized Health Care Education/Training Program; PCP Physician Assistant
DX: R56.9 Unspecified convulsions (principal); N76.0 Acute vaginitis; R07.89 Other chest pain; Z20.822 Contact with and (suspected) exposure to COVID-19; Z79.899 Other long term (current) drug therapy
CPT/HCPCS: 71046; 80053; 81001; 81025; 83690; 83735; 84484; 85025; 87491; 87502; 87591; 87635; 93005; 99283; 99284